=== PATIENT | male | born 1980 | race Caucasian/White ===

== ENCOUNTER 2021-10-28 09:54 | Outpatient (CLI) | payer OTHER, SELFPAY ==
[2021-10-28 10:21] LABS: Uric Acid 7.5 mg/dL (3.5-8.5)
[2021-10-28 10:35] LABS: Rheumatoid Factor < 8.6 IU/ML (<12)
[2021-10-30 12:47] LABS: Anti Cyclic Citrullinated Pept <16 Units (<20)
== END 2021-10-28 09:55 | disposition home or self-care (01) ==
LOC: ANHLAB 09:57
PROVIDERS: PCP Family Medicine; Visit Provider Internal Medicine
DX: M19.90 Unspecified osteoarthritis, unspecified site (principal); Z71.89 Other specified counseling
CPT/HCPCS: 36415; 84550; 86038; 86200; 86430